=== PATIENT | female | born 1955 | race Caucasian/White ===

== ENCOUNTER → 2016-03-13 | Outpatient (CLI) | payer OTHER ==
[~2016-03-13] MED LIST: CARV12.52 PO; FURO-85 PO; LISI10TA PO; MAGN400T6 PO; OXYC-57 PO; POTA20TA13 PO
[2016-03-13 12:08] LABS: AMYLASE 79 U/L (25-115)
[2016-03-16 12:33] LABS: IGA SERUM 251 mg/dL (81-463); TIS TRANS IGA 1 U/mL (<4)
== END | disposition home or self-care (01) ==
LOC: C.LAB1850 10:35
PROVIDERS: ATTEND Registered Nurse
DX: R63.4 Abnormal weight loss (principal)

== ENCOUNTER → 2016-09-08 | Outpatient (CLI) | payer OTHER ==
[2016-09-08 12:25] LABS: BASO % 0.7 %; BASO ABS # 0.03 K/uL (0-0.2); COMPLETE YES; EOS % 1.7 %; HEMATOCRIT 39.2 % (37-47); LYMPH ABS # 1.24 K/uL (1.2-3.4); MEAN CORPUSCULAR HGB CONC 32.7 g/dl (32-36); MONO % 8.5 %; NEUT % 59.1 %; PLATELET COUNT 319 K/uL (130-400); RED BLOOD COUNT 4.26 M/uL (4.2-5.4); WHITE BLOOD COUNT 4.14 K/uL (4.8-10.8)
[2016-09-08 12:39] LABS: ALT/SGPT 39 U/L (12-78); BLOOD UREA NITROGEN 19 mg/dl (7-18); BUN/CREATININE RATIO 28.7 (10-20); CALCIUM 8.8 mg/dl (8.5-10.1); CARBON DIOXIDE 31 mmol/L (21-32); CHLORIDE 108 mmol/L (98-107); CHOLESTEROL 118 mg/dl (0-200); CREATININE 0.67 mg/dl (0.60-1.20); GLUCOSE 79 mg/dl (70-99); POTASSIUM 4.1 mmol/L (3.5-5.1); SODIUM 142 mmol/L (136-145)
[2016-09-08 12:48] LABS: ALB/GLOB RATIO 0.9 (0.9-2); ALKALINE PHOSPHATASE 70 U/L (45-117); AST/SGOT 27 U/L (15-37); CHOLESTEROL/HDL RATIO 2.5; HDL CHOLESTEROL 48 mg/dl; LDL CHOLESTEROL CALCULATED 57 mg/dl; TOTAL IRON BINDING CAPACITY 344 mcg/dl (250-450); TRIGLYCERIDES 64 mg/dl (0-150); VERY LOW DENSITY LIPOPROT CALC 13 mg/dl
[2016-09-08 12:56] LABS: ESTIMATED AVERAGE GLUCOSE 111 mg/dl; HA1C FLAG Normal (Normal)
--- NOTE | 2016-09-18 10:01 | CODING QUERY MEDICAL NECESSITY ---
SUPPORTING DIAGNOSIS NEEDED Dr. Infante, A supporting diagnosis is required for the test/procedure performed on this patient in order for us to be reimbursed by the patient's insurance. Please provide a supporting diagnosis for the following test/procedure listed below next to the test name along with your signature. *If there is no additional diagnosis for this patient that would support the following test/procedure please document that below next to the test/procedure. Test(s)/Procedure(s) that require a supporting diagnosis: * ([id number]) B12 VITAMIN LEVEL DIAGNOSIS: DATE OF SERVICE: 09/08/16 Provider Signature: Date: Thank you Kike Matute [facility] Information Management Once completed, please kindly fax back to [phone] For questions please call [phone]
== END | disposition home or self-care (01) ==
LOC: C.LABPBG 09:38
PROVIDERS: ATTEND Neuromusculoskeletal Medicine & OMM
DX: Z00.00 Encounter for general adult medical examination without abnormal findings (principal); E04.1 Nontoxic single thyroid nodule; R73.01 Impaired fasting glucose; R63.4 Abnormal weight loss; R68.83 Chills (without fever); Z13.21 Encounter for screening for nutritional disorder

== ENCOUNTER 2016-10-31 20:27 | Emergency (ER) | payer OTHER ==
[~2016-10-31] VITALS: Ht 162.6 cm; Wt 82.3 kg
[~2016-10-31 20:27] MED LIST changes: -OXYC-57 PO
[2016-10-31 20:38] VITALS: TEMP 37; Ht 162.6 cm; Wt 82.3 kg
[2016-10-31] MEDS ORDERED: ONDANSETRON INJ 2 MG/ML 2 ML VIAL IV STA (21:15)
[2016-10-31] MEDS ORDERED: SODIUM CHLORIDE 0.9% 1000ML 1,000 ML IV STA (21:15)
[2016-10-31] MEDS ORDERED: KETOROLAC TROMETHAMINE 30 MG/ML VIAL IV STA (21:15)
--- NOTE | 2016-10-31 21:33 | EMERGENCY ROOM VISIT NOTE ---
History Report prepared by Vivian: Jonathon Amaro Under the Supervision of: Dr. Royce Roman M.D. First contact with patient: 21:08 Chief Complaint: ABDOMINAL PAIN Stated Complaint: RIGHT SIDE PAIN Nursing Triage Summary: triage note pt states she had loose stool took imodium, woke this am with abdominal pain right side denies n/v hx of pancreatitis History of Present Illness The patient is a 61 year old female who presents to the Emergency Room with complaints of severe, intermittent, right upper quadrant beginning this morning. The patient states that she has a baseline of loose bowels, but yesterday they were more frequent. She reports that she took Imodium yesterday. The patient notes that late last night/early this morning, she woke up with severe right upper quadrant abdominal pain. She states that it lasted for a few hours, then went away. The patient reports that she did not experience it for the rest of the day until 3 hours ago. She notes that she has a history of pancreatitis, but it doesn't feel like that. She denies a headache, dizziness, and lightheadedness. The patient states that she has a history of a cholecystectomy. Source of History: patient Onset: yesterday Position: abdomen (RUQ) Symptom Intensity: severe Timing: intermittent Associated Symptoms: + diarrhea (more frequent), No headache Note: Denies: dizziness, and lightheadedness. Review of Systems See HPI for pertinent positives & negatives. A total of 10 systems reviewed and were otherwise negative. Past Medical & Surgical Medical Problems: (1) HTN (hypertension) (2) Tachycardia Family History FH: cancer FH: diabetes mellitus FH: kidney disease FHx: heart disease Social History Smoking Status: Former Smoker Marital Status: other (legally ) Occupation Status: disabled Current/Historical Medications Scheduled Carvedilol (Coreg), 12.5 MG PO BID Magnesium Oxide (Mag-Ox), 400 MG PO BID Potassium Chloride Microencaps (Potassium Chloride Er), 20 MEQ PO ODD DAYS Potassium Chloride Microencaps (Potassium Chloride Er), 40 MEQ PO EVEN DAYS Scheduled PRN Oxycodone/Acetaminophen 5MG/325MG (Percocet 5MG/325MG), 1-2 TAB PO Q4H PRN for Pain Allergies Coded Allergies: Fluoxetine (Unverified Allergy, Intermediate, HYPERACTIVITY, 10/31/16) Valsartan (Unverified Allergy, Mild, INCREASED HEART RATE, 10/31/16) Amlodipine (Unverified Allergy, Unknown, HEART RATE INCREASED, 10/31/16) Clopidogrel (Unverified Allergy, Unknown, 10/31/16) Gabapentin (Unverified Allergy, Unknown, UNKNOWN, 10/31/16) Iron (Unverified Allergy, Unknown, UNKNOWN, 10/31/16) Metoprolol (Unverified Allergy, Unknown, HYPOGLYCEMIA, 10/31/16) Morphine (Unverified Allergy, Unknown, UNKNOWN, 10/31/16) Paroxetine (Unverified Allergy, Unknown, UNKNOWN, 10/31/16) Mirtazapine (Unverified Adverse Reaction, Intermediate, SUICIDAL IDEATION , 10/31/16) NSAIDs (Verified Adverse Reaction, Intermediate, GI SYMPTOMS, 10/31/16) Physical Exam Vital Signs Date Time Temp Pulse Resp B/P (MAP) Pulse Ox O2 Delivery O2 Flow Rate FiO2 10/31/16 22:51 74 20 144/72 98 10/31/16 22:02 66 20 146/77 98 Room Air 10/31/16 20:38 37.0 71 18 142/80 100 Room Air Physical Exam GENERAL: Patient is a healthy-appearing well-nourished 61 year old female HEAD: Normocephalic atraumatic EYES: Ocular movements intact pupils equal and react to light OROPHARYNX mucous membranes are moist no exudates present no erythema or edema present NECK: Supple no nuchal rigidity CHEST: Good equal expansion LUNGS: Clear and equal to auscultation CARDIAC: Normal S1 and S2 ABDOMEN: Soft nontender no guarding BACK: No CVA tenderness EXTREMITIES: No pain upon palpation normal muscle strength in all groups no clubbing cyanosis or edema NEURO: Patient is following commands and answering questions appropriately. Alert and oriented x3 Cranial Nerves 2-12 grossly intact Medical Decision & Procedures ER Provider Diagnostic Interpretation: Radiology results as stated below per my review and radiologist interpretation: CT SCAN OF THE ABDOMEN AND PELVIS WITHOUT CONTRAST CLINICAL HISTORY: Right flank pain COMPARISON STUDY: 09/14/2006 TECHNIQUE: CT scan of the abdomen and pelvis was performed from the lung bases to the proximal femurs. Images are reviewed in the axial, sagittal, and coronal planes. IV contrast was not administered for this examination. A dose lowering technique was utilized adhering to the principles of ALARA. CT DOSE: 1172.06 mGy.cm FINDINGS: Lower chest: The heart is normal in size and configuration, without pericardial effusion. The lung bases and pleural spaces are clear. Liver: The unenhanced liver is normal in size, contour, and attenuation. There is mild prominence of central intrahepatic biliary ducts Gallbladder: Surgically absent Spleen: Normal in size and attenuation. Pancreas: Unremarkable. Adrenal glands: There are bilateral fat-containing adrenal masses, consistent with adenomas or myelolipomas. Kidneys: No renal, ureteral, or bladder calculi are visualized. Bowel: There are no transition zones indicate bowel obstruction. There is colonic diverticulosis. There are no acute peridiverticular inflammatory changes. The appendix is felt to be normal. Peritoneum: There is no intraperitoneal free air or abdominal ascites. There is a small fat-containing umbilical hernia. Vasculature: The abdominal aorta is normal in course and caliber. Adenopathy: None. Pelvic viscera: The uterus appears surgically absent Skeletal structures: No destructive osseous lesions are seen. IMPRESSION: 1. No evidence of bowel obstruction. No evidence of free air 2. No renal, ureteral, or bladder calculi identified 3. Diverticulosis. No evidence of acute diverticulitis 4. Normal appendix 5. Bilateral fat-containing adrenal masses. These are felt to be benign Electronically signed by: Emery Patton M.D. 10/31/2016 10:02 PM Dictated Date/Time: 10/31/2016 9:58 PM Laboratory Results 10/31/16 21:19 Red Blood Count 4.42, Mean Corpuscular Volume 91.4, Mean Corpuscular Hemoglobin 31.4, Mean Corpuscular Hemoglobin Concent 34.4, Mean Platelet Volume 10.2, Neutrophils (%) (Auto) 67.3, Lymphocytes (%) (Auto) 22.4, Monocytes (%) (Auto) 8.0, Eosinophils (%) (Auto) 1.6, Basophils (%) (Auto) 0.6, Neutrophils # (Auto) 4.73, Lymphocytes # (Auto) 1.57, Monocytes # (Auto) 0.56, Eosinophils # (Auto) 0.11, Basophils # (Auto) 0.04 10/31/16 21:19 Test 10/31/16 21:15 10/31/16 21:19 Urine Color YELLOW Urine Appearance CLEAR (CLEAR) Urine pH 5.0 (4.5-7.5) Urine Specific [place] 1.017 (1.000-1.030) Urine Protein NEG (NEG) Urine Glucose (UA) NEG (NEG) Urine Ketones NEG (NEG) Urine Occult Blood NEG (NEG) Urine Nitrite NEG (NEG) Urine Bilirubin NEG (NEG) Urine Urobilinogen NEG (NEG) Urine Leukocyte Esterase NEG (NEG) White Blood Count 7.02 K/uL (4.8-10.8) Red Blood Count 4.42 M/uL (4.2-5.4) Hemoglobin 13.9 g/dL (12.0-16.0) Hematocrit 40.4 % (37-47) Mean Corpuscular Volume 91.4 fL (80-100) Mean Corpuscular Hemoglobin 31.4 pg (25-34) Mean Corpuscular Hemoglobin Concent 34.4 g/dl (32-36) Platelet Count 294 K/uL (130-400) Mean Platelet Volume 10.2 fL (7.4-10.4) Neutrophils (%) (Auto) 67.3 % Lymphocytes (%) (Auto) 22.4 % Monocytes (%) (Auto) 8.0 % Eosinophils (%) (Auto) 1.6 % Basophils (%) (Auto) 0.6 % Neutrophils # (Auto) 4.73 K/uL (1.4-6.5) Lymphocytes # (Auto) 1.57 K/uL (1.2-3.4) Monocytes # (Auto) 0.56 K/uL (0.11-0.59) Eosinophils # (Auto) 0.11 K/uL (0-0.5) Basophils # (Auto) 0.04 K/uL (0-0.2) RDW Standard Deviation 43.0 fL (36.4-46.3) RDW Coefficient of Variation 12.8 % (11.5-14.5) Immature Granulocyte % (Auto) 0.1 % Immature Granulocyte # (Auto) 0.01 K/uL (0.00-0.02) Anion Gap 6.0 mmol/L (3-11) Est Creatinine Clear Calc Drug Dose 86.5 ml/min Estimated GFR () 107.6 Estimated GFR (Non- 92.9 BUN/Creatinine Ratio 28.4 (10-20) Calcium Level 9.3 mg/dl (8.5-10.1) Total Bilirubin 0.7 mg/dl (0.2-1) Aspartate Amino Transf (AST/SGOT) U/L (15-37) Alanine Aminotransferase (ALT/SGPT) 208 U/L (12-78) Alkaline Phosphatase 102 U/L (45-117) Total Protein 7.4 gm/dl (6.4-8.2) Albumin 3.5 gm/dl (3.4-5.0) Globulin 3.9 gm/dl (2.5-4.0) Albumin/Globulin Ratio 0.9 (0.9-2) Lipase 159 U/L (73-393) Labs reviewed by ED physician. Medications Administered Medications (Trade) Dose Ordered Sig/Ho Route Start Time Stop Time Status Last Admin Dose Admin Sodium Chloride 1,000 ml @ 999 mls/hr Q1H1M STAT IV 10/31/16 21:15 10/31/16 22:15 DC 10/31/16 21:27 999 MLS/HR Ketorolac Tromethamine (Toradol Inj) 30 mg NOW STAT IV 10/31/16 21:15 10/31/16 21:17 DC 10/31/16 21:28 30 MG Hydromorphone HCl (Dilaudid Inj) 0.5 mg NOW STAT IV 10/31/16 22:15 10/31/16 22:16 DC 10/31/16 22:27 0.5 MG Metoclopramide HCl (Reglan Inj) 10 mg NOW STAT IV 10/31/16 22:15 10/31/16 22:16 DC 10/31/16 22:27 10 MG Oxycodone/ Acetaminophen (Percocet 5/ 325MG Home Pack) 1 homepack UD STAT PO 10/31/16 22:16 10/31/16 22:18 DC 10/31/16 22:16 1 HOMEPACK ED Course 2111: Past medical records reviewed. The patient was evaluated in room B07. A complete history and physical examination was performed. 2215: Ordered Zofran Inj 4mg IV, Toradol Inj 30mg IV, Sodium Chloride 1000 ml @ 999 mls/hr IV, Reglan Inj 10mg IV, Dilaudid Inj 0.5 IV 2211: Upon reexamination the patient is resting and feeling better. I discussed results and treatment plan with the patient. She verbalizes agreement and understanding. The patient is ready for discharge when she receives her homepack. 2216: Ordered Percocet 5/325MG 1 homepack PO Medical Decision Differential diagnosis: Etiologies such as appendicitis, diverticulitis, PUD, biliary pathology, UTI, pancreatitis, obstruction, mesenteric ischemia, aortic pathology, infections, inflammatory bowel disease, renal colic, as well as others were entertained. This is a 61-year-old female who presents emergency department complaining of right lower quadrant abdominal pain. The patient has a normal CBC normal renal profile normal liver profile normal lipase. Serial abdominal examinations were performed on the patient in the emergency department and at no time did the patient exhibit a surgical abdomen or even abdominal tenderness. Based on these findings I felt that the patient did not need a CAT scan the abdomen pelvis however using shared medical decision-making the patient wished to proceed with the CAT scan. This did not show any evidence of acute process. I do believe that the patient can be safely discharged home for follow-up with her primary care physician. Patient was in agreement with the treatment plan. Medication Reconcilliation Current Medication List: was personally reviewed by me Blood Pressure Screening Patient's blood pressure: Elevated blood pressure Blood pressure disposition: Referred to PCP Impression Primary Impression: Diffuse abdominal pain Scribe Attestation The scribe's documentation has been prepared under my direction and personally reviewed by me in its entirety. I confirm that the note above accurately reflects all work, treatment, procedures, and medical decision making performed by me. Departure Information Dispostion Home / Self-Care Prescriptions Oxycodone/Acetaminophen 5MG/325MG (PERCOCET 5MG/325MG) Tab 1-2 TAB PO Q4H Y for Pain, #14 TAB Prov: Royce Roman MD 10/31/16 Referrals Дмитрий Infante D.O. (PCP) Forms HOME CARE DOCUMENTATION FORM, IMPORTANT VISIT INFORMATION, School Instructions, Work Instructions Patient Instructions Abdominal Pain - [facility], Diet Clear Liquid [place], My [facility] [place] Topic Additional Instructions Clear liquid diet next 48 hours You were found to have an elevated blood pressure today (>120 sytolic or >90 diastolic). Per medicare guidelines, you need to follow up with this blood pressure screening with your Primary Care Physician (PCP). For a new PCP call [phone]. You received narcotic or benzodiazepene medication while in the emergency room today. This is an addictive medication that may cause drowziness as well as constipation. Do not drive, operate heavy machinery, or drink alcohol under the influence of this medication. Take 600 mg Ibuprofen every 6 hours Take Percocet for breakthrough pain You have been examined and treated today on an emergency basis only. This is not a substitute for, or an effort to provide, complete comprehensive medical care. It is impossible to recognize and treat all injuries or illnesses in a single emergency department visit. It is therefore important that you follow up closely with Dr Infante. Call as soon as possible for an appointment. Thank you for your time and consideration. I look forward to speaking with you again soon. Please don't hesitate to call us if you have any questions.
[2016-10-31 21:34] LABS: URINE APPEARANCE CLEAR (CLEAR); URINE BILIRUBIN NEG (NEG); URINE COLOR YELLOW; URINE NITRITE NEG (NEG); URINE SPECIFIC GRAVITY 1.017 (1.000-1.030); UROBILINOGEN NEG (NEG); ZZUR CULT IF INDIC CLEAN CATCH NO
[2016-10-31 21:40] LABS: BASO % 0.6 %; BASO ABS # 0.04 K/uL (0-0.2); COMPLETE YES; EOS % 1.6 %; HEMATOCRIT 40.4 % (37-47); IG% 0.1 %; LYMPH % 22.4 %; LYMPH ABS # 1.57 K/uL (1.2-3.4); MEAN CELL VOLUME 91.4 fL (80-100); MEAN CORPUSCULAR HEMOGLOBIN 31.4 pg (25-34); MEAN CORPUSCULAR HGB CONC 34.4 g/dl (32-36); MEAN PLATELET VOLUME 10.2 fL (7.4-10.4); NEUT % 67.3 %; PLATELET COUNT 294 K/uL (130-400); RED BLOOD COUNT 4.42 M/uL (4.2-5.4); WHITE BLOOD COUNT 7.02 K/uL (4.8-10.8)
[2016-10-31 21:42] LABS: MANUAL MICROSCOPIC REQUIRED? NO; REVIEW REQ? NO
--- NOTE | 2016-10-31 22:03 | DIAGNOSTIC IMAGING REPORT ---
CT SCAN OF THE ABDOMEN AND PELVIS WITHOUT CONTRAST CLINICAL HISTORY: Right flank pain COMPARISON STUDY: 09/14/2006 TECHNIQUE: CT scan of the abdomen and pelvis was performed from the lung bases to the proximal femurs. Images are reviewed in the axial, sagittal, and coronal planes. IV contrast was not administered for this examination. A dose lowering technique was utilized adhering to the principles of ALARA. CT DOSE: 1172.06 mGy.cm FINDINGS: Lower chest: The heart is normal in size and configuration, without pericardial effusion. The lung bases and pleural spaces are clear. Liver: The unenhanced liver is normal in size, contour, and attenuation. There is mild prominence of central intrahepatic biliary ducts Gallbladder: Surgically absent Spleen: Normal in size and attenuation. Pancreas: Unremarkable. Adrenal glands: There are bilateral fat-containing adrenal masses, consistent with adenomas or myelolipomas. Kidneys: No renal, ureteral, or bladder calculi are visualized. Bowel: There are no transition zones indicate bowel obstruction. There is colonic diverticulosis. There are no acute peridiverticular inflammatory changes. The appendix is felt to be normal. Peritoneum: There is no intraperitoneal free air or abdominal ascites. There is a small fat-containing umbilical hernia. Vasculature: The abdominal aorta is normal in course and caliber. Adenopathy: None. Pelvic viscera: The uterus appears surgically absent Skeletal structures: No destructive osseous lesions are seen. IMPRESSION: 1. No evidence of bowel obstruction. No evidence of free air 2. No renal, ureteral, or bladder calculi identified 3. Diverticulosis. No evidence of acute diverticulitis 4. Normal appendix 5. Bilateral fat-containing adrenal masses. These are felt to be benign Electronically signed by: Emery Patton M.D. 10/31/2016 10:02 PM Dictated Date/Time: 10/31/2016 9:58 PM
[2016-10-31 22:06] LABS: ALT/SGPT 208 U/L (12-78); BLOOD UREA NITROGEN 20 mg/dl (7-18); BUN/CREATININE RATIO 28.4 (10-20); CALCIUM 9.3 mg/dl (8.5-10.1); CARBON DIOXIDE 29 mmol/L (21-32); CHLORIDE 105 mmol/L (98-107); GLUCOSE 117 mg/dl (70-99); SODIUM 140 mmol/L (136-145)
[2016-10-31 22:08] LABS: ALB/GLOB RATIO 0.9 (0.9-2); ALKALINE PHOSPHATASE 102 U/L (45-117)
[2016-10-31] MEDS ORDERED: METOCLOPRAMIDE HCL INJ 5 MG/ML 2 ML VIAL IV STA (22:15)
[2016-10-31] MEDS ORDERED: HYDROmorphone INJ 0.5 MG/0.5 ML SYR IV STA (22:15)
[2016-10-31] MEDS ORDERED: PERCOCET HOME PACK PO STA (22:16)
[2016-10-31] MEDS ORDERED: OXYC-57 PO (22:19)
[2016-10-31 22:51] VITALS: BP 144/72; PULSE 74; O2SAT 98
== END 2016-10-31 22:52 | disposition home or self-care (01) ==
LOC: C.EDB 20:28
DX: R10.11 Right upper quadrant pain (principal); I10 Essential (primary) hypertension; K85.90 Acute pancreatitis without necrosis or infection, unspecified; Z80.9 Family history of malignant neoplasm, unspecified; Z83.3 Family history of diabetes mellitus; Z84.1 Family history of disorders of kidney and ureter; Z82.49 Family history of ischemic heart disease and other diseases of the circulatory system; Z87.891 Personal history of nicotine dependence; Z79.899 Other long term (current) drug therapy

== ENCOUNTER → 2016-11-08 | Outpatient (CLI) | payer OTHER ==
[~2016-11-08] MED LIST changes: -FURO-85 PO; -LISI10TA PO; +OXYC-57 PO
[2016-11-10 17:01] LABS: MICROSOMAL AB 1 IU/ML (<9)
== END | disposition home or self-care (01) ==
LOC: C.LABPBG 11:20
PROVIDERS: ATTEND Internal Medicine
DX: E04.1 Nontoxic single thyroid nodule (principal); R94.5 Abnormal results of liver function studies